=== PATIENT | male | born 1945 | race Caucasian/White ===

== ENCOUNTER 2018-05-02 23:15 | Emergency (ER) | payer BC, OTHER ==
[~2018-05-02] VITALS: Ht 177.8 cm; Wt 90.7 kg
[~2018-05-02 23:15] MED LIST: CIPR-173 PO; HYDR25TA4 PO; METO5INJ IV; NOR10T OR
[2018-05-02] MEDS ORDERED: SODIUM BICARBONATE 8.4% INJ 50ML SYRINGE IV ONE (23:16)
[2018-05-02] MEDS ORDERED: CALCIUM CHLOR(10%) 100MG/ML 10ML SYRINGE IV ONE (23:16)
[2018-05-02] MEDS ORDERED: EPINEPHrine HCL 1 MG/10 ML SYRG IV ONE (23:16)
[2018-05-02] MEDS ORDERED: SODIUM BICARBONATE 8.4% INJ 50ML SYRINGE ONE (23:26)
== END 2018-05-03 03:18 | disposition expired ==
LOC: ER 23:15 → EDUNIT# 23:15 → EDBD 23:15 → ER 05-03 03:18
DX: I46.9 Cardiac arrest, cause unspecified (principal); J44.9 Chronic obstructive pulmonary disease, unspecified; I10 Essential (primary) hypertension; E11.9 Type 2 diabetes mellitus without complications; F17.210 Nicotine dependence, cigarettes, uncomplicated; Z88.2 Allergy status to sulfonamides; Z79.899 Other long term (current) drug therapy; Z90.49 Acquired absence of other specified parts of digestive tract
CPT/HCPCS: 92950; 99291; J0171